=== PATIENT | female | born 1940 | race Caucasian/White ===

== ENCOUNTER 2016-06-20 22:04 | Inpatient (IN) ==
[2016-06-21] MEDS ORDERED: Ondansetron 4 MG/2 ML VIAL IVP ONE (01:20)
[2016-06-21] MEDS ORDERED: *HR* HYDROmorphone (PF) 1 MG/ML SYRINGE IVP ONE (01:20)
--- NOTE | 2016-06-21 03:02 | Internal Med History&Physical ---
Date of Encounter: 06/21/16 Time of Encounter: 03:00 Assessment and Plan (1) Closed left hip fracture Current visit: Yes Status: Acute Management as per orthopedic surgery. Pain control. DVT prophylaxis. Qualifiers: Encounter type: initial encounter Qualified Code(s): S72.002A - Fracture of unspecified part of neck of left femur, initial encounter for closed fracture (2) Coronary artery disease Current visit: Yes Status: Acute No chest pain, no EKG changes. Qualifiers: Coronary Disease-Associated Artery/Lesion type: bypass graft [place] vs. transplanted heart: [place] heart Associated angina: without angina Qualified Code(s): I25.810 - Atherosclerosis of coronary artery bypass graft(s) without angina pectoris (3) Hypertension Current visit: Yes Status: Acute Continue monitoring. Resume home medications. Qualifiers: Hypertension type: essential hypertension Qualified Code(s): I10 - Essential (primary) hypertension (4) Anxiety Current visit: Yes Status: Acute Internal Medicine - H&P: HPI Chief complaint: Fall Admitted From: Hospital to Hospital Transfer Plans for Post Hospital Care: Transfer Inp Rehab Fac History of present illness: Ms. Barahona is a 76 year old female with past medical history of hypertension, coronary artery disease status post CABG, osteoarthritis, former smoker, emphysema. The patient presented to [facility] status post mechanical fall at home, she denies loss of consciousness. Upon evaluation she was found to have a left hip fracture for which she was transferred to a [facility] for further management. Patient was accepted by Dr. Kelsey from orthopedic surgery. The patient denies fever, chills, chest pain, shortness of breath, wheezing, dysuria , diarrhea, skin rash. Past Med Surg Social Fam HX - Past Medical History Medical history: arthritis, coronary artery disease, hypertension Psychiatric history: anxiety - Past Surgical History Surgical History: angioplasty/stent, appendectomy, cataract, coronary bypass ( CABG), hysterectomy - Social History Smoking Status: Former smoker Smokeless Tobacco Status: No Alcohol use: none - Family History Father Living Status: Age at : 79 Cause of : Lung Cancer Hx Family Cancer: Yes (Lung Cancer) Mother Living Status: Age at : 79 Hx Family Neurologic Disorders: Yes (Dementia) Internal Medicine - H&P: Meds ClonazePAM [Klonopin] 0.5 mg PO BID 06/21/16 [History] Docusate [Colace] 100 mg PO BID 06/21/16 [History] Furosemide [Lasix] 20 mg PO BID 06/21/16 [History] Isosorbide DInitrate [Isordil] 10 mg PO BID PRN 06/21/16 [History] Lisinopril [Zestril] 20 mg PO DAILY 06/21/16 [History] Meloxicam [Mobic] 7.5 mg PO DAILY 06/21/16 [History] Omeprazole [PriLOSEC] 40 mg PO DAILY 06/21/16 [History] Oxycodone HCl/Acetaminophen [Percocet 5-325 mg Tablet] 5 - 325 mg PO Q4HR PRN [History] Promethazine [Phenergan] 12.5 mg PO Q6HR PRN 06/21/16 [History] Simvastatin [Zocor] 40 mg PO HS 06/21/16 [History] Temazepam [Restoril] 15 mg PO HS PRN 06/21/16 [History] Allergies Sulfa (Sulfonamide Antibiotics) Allergy (Verified 06/21/16 00:34) Hives CONTRAST DYE Allergy (Intermediate, Uncoded 06/21/16 00:48) Agitated and difficutly breathing All Systems PM: A 10-system review of systems was performed and is negative for pertinent findings except as documented above in the HPI. - Constitutional Constitutional: as per HPI, no chills, no fever(s), no night sweats - EENT Eyes: as per HPI, no change in vision, no discharge, no pain, no photophobia Ears: as per HPI, no ear discharge, no ear pain, no tinnitus Nose, mouth and throat: as per HPI, no dysphagia, no nasal discharge, no neck pain, no sore throat - Breasts Breasts: as per HPI - Cardiovascular Cardiovascular ROS IM: as per HPI, no chest pain, no diaphoresis, no dyspnea, no lightheadedness, no palpitations, no syncope - Respiratory Respiratory: as per HPI, no cough, no dyspnea, no wheezing, no excessive phlegm production - Gastrointestinal Gastrointestinal: as per HPI, no abdominal pain, no diarrhea, no hematemesis, no hematochezia, no melena, no nausea, no vomiting - Genitourinary Genitourinary: as per HPI, no change in urinary stream, no dysuria, no flank pain, no hematuria Menstruation: as per HPI - Musculoskeletal Musculoskeletal ROS IM: as per HPI, limited range of motion, no numbness, no tingling - Integumentary Integumentary IM: as per HPI, no rash, no unusual bruising - Neurological Neurological ROS: as per HPI, no confusion, no convulsions, no focal weakness, no numbness, no tingling, no tremor(s) - Psychiatric Psychiatric: as per HPI - Endocrine Endocrine IM: as per HPI - Hematologic/Lymphatic Hematologic/Lymphatic: as per HPI, no easy bruising - Allergic/Immunologic Allergic/Immunologic: as per HPI - Constitutional Vitals: Temp Pulse Resp BP Pulse Ox 98.8 F 86 18 159/79 97 06/21/16 00:00 06/21/16 00:00 06/21/16 00:00 06/21/16 00:00 06/21/16 00:00 General appearance: Present: A&O X 3, pleasant, no acute distress Exam: She is alert, awake, oriented, complaining of left hip pain. - Head Head exam: Present: atraumatic, normocephalic - Eye Eye exam: Present: PERRL, conjuntiva pink, sclera anicteric Pupils: Present: PERRL - Neck Neck exam general surgery: Present: supple, trachea midline. Absent: lymphadenopathy - Respiratory Respiratory exam: Present: CTAB. Absent: accessory muscle use, rales, rhonchi, wheezes - Cardiovascular Cardiovascular exam: Present: RRR, +S1, +S2. Absent: diastolic murmur, gallop, rubs, systolic murmur - GI/Abdominal GI/Abdominal exam: Present: normal bowel sounds, soft, no peritoneal signs. Absent: distended, tenderness - Extremities Exam Extremities exam: Present: warm, radial pulses palpable and symetrical. Absent : calf tenderness, cyanotic, pedal edema Additional comments: Left lower extremity externally rotated, shortening of left lower extremity - Neurological Exam Neurological exam: Present: CN II-XII intact, oriented X3, no focal deficits. Absent: pronater drift, facial droop, speech deficit - Skin Skin exam: Present: dry, intact Internal Med - H&P Results - Labs Labs: Hemoglobin 9.4, hematocrit 28.7, platelet count 158,000. INR 1.01.
[2016-06-21] MEDS ORDERED: Naloxone 0.4 MG/ML INJ IVP PRN ×3 (03:07→19:17)
[2016-06-21] MEDS ORDERED: *HR* OxyCODONE Immed Rel 5 MG TABLET PO PRN (03:07)
[2016-06-21] MEDS ORDERED: Ondansetron 4 MG/2 ML VIAL IVP PRN (03:07)
[2016-06-21] MEDS ORDERED: Acetaminophen 325 MG TABLET PO PRN ×2 (03:07→19:17)
[2016-06-21 04:32] LABS: Basophils % 0.2 %; Eosinophils % 0.7 %; Hematocrit 27.5 % (35.3-44.9); Hemoglobin 8.7 g/dL (11.5-15.4); Immature Granulocytes % 0.2 % (0-4); Lymphocytes # 0.5 K/mcL (0.6-4.6); Lymphocytes % 11.9 %; Mean Corpuscular HGB Conc 31.6 g/dL (31.6-35.5); Mean Corpuscular Hemoglobin 29.2 pg (28.0-33.3); Mean Corpuscular Volume 92.3 fL (83.0-100.0); Monocytes # 0.5 K/mcL (0.0-1.3); Monocytes % 11.4 %; Platelet Count 122 K/mcL (140-400); Red Blood Count 2.98 M/mcL (3.82-4.97); Segmented Neutrophils % 75.6 %
[2016-06-21 04:47] LABS: Alanine Aminotransferase 11 Units/L (0-55); Albumin 2.8 g/dL (3.5-5.0); Albumin/Globulin Ratio 0.9 (1.1-2.2); Alkaline Phosphatase 68 Units/L (38-126); Aspartate Amino Transferase 14 Units/L (5-34); BUN/Creatinine Ratio 22 (6-26); Bilirubin,Total 0.5 mg/dL (0.2-1.2); Blood Urea Nitrogen 20 mg/dL (7-20); Calcium 8.6 mg/dL (8.6-10.8); Carbon Dioxide 22 mEq/L (19-29); Chloride 107 mEq/L (98-109); Globulin 3.1 g/dL (2.4-3.5); Glucose 87 mg/dL (70-99); Osmolality,Calculated 286 (280-300); Potassium 4.7 mEq/L (3.5-4.5); Sodium 137 mEq/L (136-145); Total Protein 5.9 g/dL (6.0-8.3); eGFR For African Americans > 60 (> 60); eGFR For Non-African Americans > 60 (> 60)
[2016-06-21] MEDS ORDERED: Famotidine 20 MG/2 ML VIAL IVP SCH (06:00)
[2016-06-21] MEDS ORDERED: *HR* Heparin 5,000 UNIT/ML VIAL SQ SCH (06:00)
[2016-06-21] MEDS: *HR* Morphine 2 MG/ML SYRINGE IVP PRN ×4 (06:06→21:03)
--- NOTE | 2016-06-21 06:18 | Orthopedic Consult Note ---
Date of Encounter: 06/21/16 Time of Encounter: 06:16 History of Present Illness HPI: Ms. Barahona is a 76 year old female Status post post fall yesterday with injury to left hip.The patient denies any head trauma. Complains of inability to ambulate. Alert and oriented 3. Left lower extremity Neurovascularly intact Decreased range of motion secondary to pain X-rays left hip intertrochanteric hip fracture. Recommendation for left hip open reduction intramedullary nail fixation. Risks and benefits of surgery were discussed. Past Med Surg Social Fam HX - Past Medical History Medical history: arthritis, coronary artery disease, hypertension Psychiatric history: anxiety - Past Surgical History Surgical History: angioplasty/stent, appendectomy, cataract, coronary bypass ( CABG), hysterectomy - Social History Smoking Status: Former smoker Smokeless Tobacco Status: No Alcohol use: none - Family History Father Living Status: Age at : 79 Cause of : Lung Cancer Hx Family Cancer: Yes (Lung Cancer) Mother Living Status: Age at : 79 Hx Family Neurologic Disorders: Yes (Dementia) Medications and Allergies ClonazePAM [Klonopin] 0.5 mg PO BID 06/21/16 [History] Docusate [Colace] 100 mg PO BID 06/21/16 [History] Furosemide [Lasix] 20 mg PO BID 06/21/16 [History] Isosorbide DInitrate [Isordil] 10 mg PO BID PRN 06/21/16 [History] Lisinopril [Zestril] 20 mg PO DAILY 06/21/16 [History] Meloxicam [Mobic] 7.5 mg PO DAILY 06/21/16 [History] Omeprazole [PriLOSEC] 40 mg PO DAILY 06/21/16 [History] Oxycodone HCl/Acetaminophen [Percocet 5-325 mg Tablet] 5 - 325 mg PO Q4HR PRN [History] Promethazine [Phenergan] 12.5 mg PO Q6HR PRN 06/21/16 [History] Simvastatin [Zocor] 40 mg PO HS 06/21/16 [History] Temazepam [Restoril] 15 mg PO HS PRN 06/21/16 [History] Allergies Sulfa (Sulfonamide Antibiotics) Allergy (Verified 06/21/16 00:34) Hives CONTRAST DYE Allergy (Intermediate, Uncoded 06/21/16 00:48) Agitated and difficutly breathing All Systems Reviewed: A 10-system review of systems was performed and is negative for pertinent findings except as documented above in the HPI. Physical Exam - Constitutional Vitals: Temp Pulse Resp BP Pulse Ox 98.8 F 86 18 159/79 97 06/21/16 00:00 06/21/16 00:00 06/21/16 00:00 06/21/16 00:00 06/21/16 00:00 Results - Labs Result Diagrams: 06/21/16 03:39 06/21/16 03:39 Labs: Abnormal lab results WBC 4.0 K/mcL (4.3-11.1) L 06/21/16 03:39 RBC 2.98 M/mcL (3.82-4.97) L 06/21/16 03:39 Hgb 8.7 g/dL (11.5-15.4) L 06/21/16 03:39 Hct 27.5 % (35.3-44.9) L 06/21/16 03:39 Plt Count 122 K/mcL (140-400) L 06/21/16 03:39 Lymphocytes # 0.5 K/mcL (0.6-4.6) L 06/21/16 03:39 Potassium 4.7 mEq/L (3.5-4.5) H 06/21/16 03:39 Serum Total Protein 5.9 g/dL (6.0-8.3) L 06/21/16 03:39 Albumin 2.8 g/dL (3.5-5.0) L 06/21/16 03:39 Albumin/Globulin Ratio 0.9 (1.1-2.2) L 06/21/16 03:39 H & H 06/21/16 Range/Units 03:39 Hgb 8.7 L (11.5-15.4) g/dL Hct 27.5 L (35.3-44.9) % All other labs normal. Consult Discharge Plan - Plan Referrals: NO,PCP [Primary Care Provider] -
[2016-06-21] MEDS ORDERED: Lisinopril 20 MG TABLET PO SCH (09:00)
--- NOTE | 2016-06-21 12:00 | Event Note ---
Date of Encounter: 06/21/16 Time of Encounter: 11:58 Patient with history of CAD had a CABG in the past, hypertension, COPD, patient with admitted early this morning following a fall sustaining left hip fracture has been seen by orthopedics surgeon on plan for surgery this jonn and is medically stable no chest pain or sob stable for surgery this faternoon
[2016-06-21] MEDS ORDERED: D5% in 0.45% NACL 1,000 ML IVC SCH (14:15)
[2016-06-21] MEDS ORDERED: D5% in 0.45% NACL 1,000 ML IVC ONE (14:18)
--- NOTE | 2016-06-21 15:08 | Cardiology Consult Note ---
Date of Encounter: 06/21/16 Time of Encounter: 15:04 Assessment and Plan (1) Pre-operative cardiovascular examination Current Visit: Yes Status: Acute Mrs. Barahona currently has no acute cardiac complaints. History of CABG in 2012. No cardiac problems since that time. EKG shows no acute ST changes. Normal sinus rhythm, heart rate 84 bpm. No indication to delay surgery for further cardiac testing. Intermediate risk for intermediate risk surgery. Continue aspirin and statin perioperatively. Currently not on beta-robe. Consider starting after surgery. Call with questions. (2) Coronary artery disease Current Visit: Yes Status: Acute Continue aspirin, statin. Unsure why she is not on beta-robe. Can consider starting prior to discharge. Qualifiers: Coronary Disease-Associated Artery/Lesion type: bypass graft [place] vs. transplanted heart: [place] heart Associated angina: without angina Qualified Code(s): I25.810 - Atherosclerosis of coronary artery bypass graft(s) without angina pectoris Discussion w patient/family: The assessment and plan as outlined above was discussed with the patient and/or family members who expressed understanding and agreement. All questions were answered. Thank you for involving us in the care of your patient. Please call with any questions. History of Present Illness Consult date: 06/21/16 Requesting physician: Sophie Sullivan Consult reason: pre-operative cardiovascular clearance Chief complaint: Fall History of present illness: Ms. Barahona is a 76 year old female with a history of CABG in 2012 and hypertension. She presented after a mechanical fall at home fracturing her left hip. She denies dizziness or lightheadedness. She fell after turning to quickly with her walker. She denies any acute cardiac symptoms. She describes chronic symptoms including chest discomfort that occurs at night. She reports taking Imdur as needed for chest discomfort twice a week. Her discomfort has been ongoing for 2 years. She does have shortness of breath on climbing stairs or walking more than a city block. She reports this is chronic and unchanged over the past few years. She also has bilateral lower extremity edema that she reports is unchanged for several years. Her assistant in nursing is in [facility]. Past Med Surg Social Fam HX - Past Medical History Attestation: Yes The following information was validated with the patient. Medical history: arthritis, coronary artery disease, hypertension Psychiatric history: anxiety - Past Surgical History Surgical History: angioplasty/stent, appendectomy, cataract, coronary bypass ( CABG), hysterectomy - Social History Smoking Status: Former smoker Smokeless Tobacco Status: No Alcohol use: none - Family History Father Living Status: Age at : 79 Cause of : Lung Cancer Hx Family Cancer: Yes (Lung Cancer) Mother Living Status: Age at : 79 Hx Family Neurologic Disorders: Yes (Dementia) Medications and Allergies Calcium Carbonate/Vitamin D3 [Calcium 600 + Vit D Tablet] 1 tab PO DAILY [History] ClonazePAM [Klonopin] 0.5 mg PO BID 06/21/16 [History] Docusate [Colace] 100 mg PO BID 06/21/16 [History] Furosemide [Lasix] 20 mg PO BID 06/21/16 [History] Isosorbide DInitrate [Isordil] 10 - 20 mg PO TID PRN 06/21/16 [History] Lidocaine/Prilocaine CREAM [Emla] 1 appl TP PRN 06/21/16 [History] Lisinopril [Zestril] 20 mg PO DAILY 06/21/16 [History] Meloxicam [Mobic] 7.5 mg PO DAILY 06/21/16 [History] Multivitamin [One Daily Multivitamin] 1 tab PO DAILY 06/21/16 [History] [place]-3/Dha/Epa/Fish Oil [Fish Oil 1,000 mg Softgel] 1,000 mg PO DAILY 06/21/16 [History] Omeprazole [PriLOSEC] 40 mg PO DAILY 06/21/16 [History] Oxycodone HCl/Acetaminophen [Percocet 5-325 mg Tablet] 5 - 325 mg PO Q4HR PRN [History] Promethazine [Phenergan] 12.5 mg PO Q6HR PRN 06/21/16 [History] Simvastatin [Zocor] 40 mg PO HS 06/21/16 [History] Temazepam [Restoril] 15 mg PO HS PRN 06/21/16 [History] Allergies Sulfa (Sulfonamide Antibiotics) Allergy (Verified 06/21/16 00:34) Hives CONTRAST DYE Allergy (Intermediate, Uncoded 06/21/16 00:48) Agitated and difficutly breathing All Systems Review: A 10-system review of systems was performed and is negative for pertinent findings except as documented above in the HPI. Physical Examination General: Conversant, No Apparent Distress, Other (Frail elderly female) HEENT: Atraumatic, Normocephaly, Mucus Membranes Moist Neck: No JVD, Normal carotid pulses Cardiac: Reg Rate and Rhythm, Normal S1 and S2, No Murmur Lungs: Normal Breath Sounds, No Wheeze, Rales, Rhonchi Neuro: Alert and responsive, No focal deficits noted Abdomen: Soft, Non-Tender Skin: No rashes noted on visualized skin Musculoskeletal: No Chest Wall Tenderness Extremities: No Clubbing, No Cyanosis, Normal Pulses, Other (trace-1+edema BLE. ) Results 06/21/16 03:39 06/21/16 03:39 Lab Results 06/21/16 06/21/16 06/21/16 03:39 03:39 03:39 WBC 4.0 L Hgb 8.7 L Hct 27.5 L Plt Count 122 L Sodium 137 Potassium 4.7 H Chloride 107 Carbon Dioxide 22 BUN 20 Creatinine 0.89 Glucose 87 Calcium 8.6 Total Bilirubin 0.5 AST 14 ALT 11 Alkaline Phosphatase 68 Troponin I 0.02 - EKG Interpretation EKG results cardiology: personally reviewed (Sinus rhythm with no acute ST changes. Heart rate is 84 bpm.) Consult Discharge Plan - Plan Referrals: NO,PCP [Primary Care Provider] -
--- NOTE | 2016-06-21 16:33 | Anesthesia Evaluation PreOp ---
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) Other Medical History: Denies Any Significant HX, Other (Closed Left Hip Fx) Anesthesia History: No Prior Anesthetic Complications, Past Anesthesia (Appy, Cataract, CABG, YULIYA) : No Alcohol Use: none Drug use: none Medications and Allergies Calcium Carbonate/Vitamin D3 [Calcium 600 + Vit D Tablet] 1 tab PO DAILY [History] ClonazePAM [Klonopin] 0.5 mg PO BID 06/21/16 [History] Docusate [Colace] 100 mg PO BID 06/21/16 [History] Furosemide [Lasix] 20 mg PO BID 06/21/16 [History] Isosorbide DInitrate [Isordil] 10 - 20 mg PO TID PRN 06/21/16 [History] Lidocaine/Prilocaine CREAM [Emla] 1 appl TP PRN 06/21/16 [History] Lisinopril [Zestril] 20 mg PO DAILY 06/21/16 [History] Meloxicam [Mobic] 7.5 mg PO DAILY 06/21/16 [History] Multivitamin [One Daily Multivitamin] 1 tab PO DAILY 06/21/16 [History] [place]-3/Dha/Epa/Fish Oil [Fish Oil 1,000 mg Softgel] 1,000 mg PO DAILY 06/21/16 [History] Omeprazole [PriLOSEC] 40 mg PO DAILY 06/21/16 [History] Oxycodone HCl/Acetaminophen [Percocet 5-325 mg Tablet] 5 - 325 mg PO Q4HR PRN [History] Promethazine [Phenergan] 12.5 mg PO Q6HR PRN 06/21/16 [History] Simvastatin [Zocor] 40 mg PO HS 06/21/16 [History] Temazepam [Restoril] 15 mg PO HS PRN 06/21/16 [History] Allergies Sulfa (Sulfonamide Antibiotics) Allergy (Verified 06/21/16 00:34) Hives CONTRAST DYE Allergy (Intermediate, Uncoded 06/21/16 00:48) Agitated and difficutly breathing - Meds/Allergy Pre-op Review Medications Reviewed: Yes Allergies Reviewed: Yes Beta Blockers on Current Med List: No Anesthesia Results - Labs 06/21/16 03:39 06/21/16 03:39 - Imaging EKG: image reviewed (NSR) Anesthesia Exam O2 Sat Height 1.65 m Weight 60.016 kg O2 Sat by Pulse Oximetry 93 O2 Sat by Pulse Oximetry 97 O2 Sat by Pulse Oximetry 97 O2 Sat by Pulse Oximetry 97 O2 Sat by Pulse Oximetry 97 O2 Sat by Pulse Oximetry 97 Vital Signs Temp Pulse Resp BP Pulse Ox 98.8 F 86 18 159/79 97 06/21/16 00:00 06/21/16 00:00 06/21/16 00:00 06/21/16 00:00 06/21/16 00:00 Vital Signs/O2 Sat, Most Current Temp Pulse Resp BP Pulse Ox 98 F 83 18 134/72 93 L 06/21/16 15:39 06/21/16 15:39 06/21/16 15:39 06/21/16 15:39 06/21/16 15:39 Height: 5'5'' Weight: 132# NPO (# of Hours): > 8 hrs Pain Scale: 0 Pain Scale Used: Numeric (1 - 10) - HEENT Pupil (Motor): Pupils equal, EOMI Mallampati: II Teeth: Missing Denture Type: Upper: Complete, Lower: Partial Oral Opening: Greater than 3 - COMMERCIAL ENERGY RATER LOC: Oriented COMMERCIAL ENERGY RATER Motor: Normal RUE, Normal LUE, Normal RLE, Normal LLE, Normal Face COMMERCIAL ENERGY RATER Sensory: Normal: RUE, LUE, RLE, LLE, Face - Cardiac Rhythm: Regular Murmur: None JVD: No Carotid Bruit: No - Pulmonary Breath Sounds: bilateral Clear Respiratory Effort: Symmetrical Anesthesia Assess/Plan ASA Score: 3 Modified [place] Scale for Level of Consciousness: Cooperative, oriented, and tranquil Anesthetic Plan: General, Regional Monitoring Plan: Standard Monitors Recovery Plan: PACU
[2016-06-21] MEDS ORDERED: *HR* FentaNYL (PF) 100 MCG/2 ML VIAL ONE (16:54)
[2016-06-21] MEDS ORDERED: *HR* Propofol 200 MG/20 ML VIAL IVP ONE (16:54)
[2016-06-21] MEDS ORDERED: Lidocaine -MPF 2% 2 ML VIAL ONE (16:55)
[2016-06-21] MEDS ORDERED: Ondansetron 4 MG/2 ML VIAL ONE (17:59)
[2016-06-21] MEDS ORDERED: Dexamethasone 4 MG/ML VIAL ONE (17:59)
[2016-06-21] MEDS ORDERED: *HR* Morphine 2 MG/ML SYRINGE IVP PRN (18:21)
--- NOTE | 2016-06-21 18:27 | Orthopedic Operative Note ---
Date of procedure: 06/21/16 Pre-op diagnosis: Left intertrochanteric hip fracture Post-op diagnosis: same Procedure: Procedure: Left hip open reduction intramedullary nail fixation Estimated blood loss: 50 cc Hardware:Synthes 10 x 1 30 TFN, 95 helical blade, 36 distal locking bolt Operative procedure: The patient was brought to the operating room and placed on the operating room table. After general anesthesia was administered the well leg was place in the well leg honeycutt and the operative leg was placed in the fracture leg honeycutt. All pressure points were padded appropriately. The operative extremity was prepped and draped in the sterile surgical fashion patient received IV antibiotic prior to skin incision. A standard direct lateral approach was made over the entry point of the greater trochanter, the incision was made through the skin and subcutaneous tissue hemostasis was obtained with Bovie cautery. Using careful sharp dissection the fascia was identified and incised, flouroscopic assistance was used to identify the entry point. The guidepin was placed at the entry point using fluroscopic assistance, it was over reamed with the proximal reamer. The nail was placed through the entry hole, across the fracture site into the distal fragment. the position was confirmed with fluroscopy. A guide pin was placed through the proximal locking guide from the lateral femur through the nail across the fracture site into the femoral head, it was over reamed with the reamer. The helical blade was placed over the guide pin through the nail into the femoral head, locked in place with the proximal locking bolt. Distal locking bolt was placed through the distal locking guide. position of hardware and fracture reduction found to be acceptable with fluroscopic assistance. The wound was irrigated. Fascia was closed with a running #2 PDS suture. The deep tissue was irrigated and closed deep with #1 PDS suture superficially with 0 PDS suture and skin was closed wiskin fahad. The patient was placed in a sterile dressing The patient was extubated and transferred to the recovery room in stable condition. Anesthesia: GETA Surgeon: Efren Kelsey Condition: stable Disposition: PACU
--- NOTE | 2016-06-21 19:08 | Anesthesia Evaluation Post Op ---
Date of Encounter: 06/21/16 Time of Encounter: 19:07 - Vital Signs Vital Signs: Vital Signs/O2 Sat, Most Current Temp Pulse Resp BP Pulse Ox 99.3 F 92 16 165/87 98 06/21/16 19:05 06/21/16 19:05 06/21/16 19:05 06/21/16 19:05 06/21/16 19:05 - Lungs Lungs: Clear Ascult./Percussion - Airway Airway: Non-obstructed - Cardiovascular Regular Rate - Mental Status Mental Status: Asleep with brisk response to light stimulation - Pain Pain Scale: 0 Pain Scale used: Numeric (1 - 10) - Nausea Vomiting Nausea Vomiting: Not Present - Hydration Hydration: NPO, Pool catheter - Discharge PostOp Status: Transfer Patient to floor
[2016-06-21] MEDS: D5% in 0.45% NACL 1,000 ML IVC SCH (21:03)
[2016-06-21] MEDS ORDERED: *HR* Promethazine 25 MG/ML VIAL IVP PRN (22:02)
[2016-06-21] MEDS: *HR* OxyCODONE Immed Rel 5 MG TABLET PO PRN (22:11)
[2016-06-22] MEDS: ceFAZolin 2,000 MG in D5% in Water 100 ML IVPB SCH ×2 (00:18→09:22)
[2016-06-22] MEDS: *HR* Morphine 2 MG/ML SYRINGE IVP PRN ×2 (01:48→08:10)
--- NOTE | 2016-06-22 01:57 | Orthopedics Progress Note ---
Date of Encounter: 06/22/16 Time of Encounter: 01:56 Subjective Principal diagnosis: s/p left hip IM nail Interval history: The patient complains of left hip leg pain. Afebrile vital signs are stable. Incision is clean dry and intact. Neurovascularly intact with regard to bilateral lower extremities. Assessment :stable. Plan mobilize ,continue analgesics, discharge planning. Objective Vital signs: Vital Signs Temp Pulse Resp BP Pulse Ox 06/21/16 23:07 98.1 F 83 17 137/79 98 06/21/16 22:30 99.2 F 87 18 138/83 100 06/21/16 21:30 99.4 F 88 16 139/91 98 06/21/16 20:30 98.0 F 90 16 151/90 98 06/21/16 20:00 98.5 F 87 15 152/84 98 06/21/16 19:30 98.7 F 90 20 161/93 98 06/21/16 19:05 99.3 F 92 16 165/87 98 06/21/16 18:55 94 16 156/93 99 06/21/16 18:45 96 14 161/83 93 L 06/21/16 18:40 99 16 157/92 97 06/21/16 18:35 100.0 F H 89 16 143/70 100 06/21/16 15:39 98 F 83 18 134/72 93 L 06/21/16 11:03 98.2 F 87 16 126/70 97 06/21/16 09:55 97 06/21/16 06:40 98.4 F 84 14 132/71 97 Intake and Output 06/21/16 06/21/16 06/22/16 15:59 23:59 07:59 Intake Total 0 / 0 Output Total 1250 / 1250 Balance -1250 / -1250 Intake: Oral 0 / 0 Output: Urine 550 / 550 Estimated Blood Loss 50 / 50 Catheter 650 / 650 Other: Meal npo npo Percent of Meal Consumed 0% 0% Blood Glucose* 78 - Labs CBC & BMP: 06/21/16 03:39 06/21/16 03:39 Labs: Abnormal lab results WBC 4.0 K/mcL (4.3-11.1) L 06/21/16 03:39 RBC 2.98 M/mcL (3.82-4.97) L 06/21/16 03:39 Hgb 8.7 g/dL (11.5-15.4) L 06/21/16 03:39 Hct 27.5 % (35.3-44.9) L 06/21/16 03:39 Plt Count 122 K/mcL (140-400) L 06/21/16 03:39 Lymphocytes # 0.5 K/mcL (0.6-4.6) L 06/21/16 03:39 Potassium 4.7 mEq/L (3.5-4.5) H 06/21/16 03:39 Serum Total Protein 5.9 g/dL (6.0-8.3) L 06/21/16 03:39 Albumin 2.8 g/dL (3.5-5.0) L 06/21/16 03:39 Albumin/Globulin Ratio 0.9 (1.1-2.2) L 06/21/16 03:39 - VTE Documentation of Mechanical Device: Venous foot pump, device Consult Discharge Plan - Plan Referrals: NO,PCP [Primary Care Provider] -
[2016-06-22 05:14] LABS: Hematocrit 26.6 % (35.3-44.9); Hemoglobin 8.5 g/dL (11.5-15.4)
[2016-06-22] MEDS: *HR* Heparin 5,000 UNIT/ML VIAL SQ SCH ×2 (05:20→17:51)
[2016-06-22] MEDS: *HR* OxyCODONE Immed Rel 5 MG TABLET PO PRN ×3 (05:28→17:50)
[2016-06-22] MEDS: Famotidine 20 MG/2 ML VIAL IVP SCH (07:46)
[2016-06-22] MEDS: Lisinopril 20 MG TABLET PO SCH (07:55)
[2016-06-22] MEDS ORDERED: Famotidine 20 MG/2 ML VIAL IVP SCH (09:00)
--- NOTE | 2016-06-22 12:50 | Internal Med Progress Note ---
Date of Encounter: 06/22/16 Time of Encounter: 12:48 - Assessment and plan (1) Closed left hip fracture Current Visit: Yes Status: Acute Assessment and plan: ns/p suregry no complication having some pain will resume home percoct Qualifiers: Encounter type: initial encounter Qualified Code(s): S72.002A - Fracture of unspecified part of neck of left femur, initial encounter for closed fracture (2) Coronary artery disease Current Visit: Yes Status: Acute Assessment and plan: no chest pain seen by cardiology Qualifiers: Coronary Disease-Associated Artery/Lesion type: bypass graft [place] vs. transplanted heart: [place] heart Associated angina: without angina Qualified Code(s): I25.810 - Atherosclerosis of coronary artery bypass graft(s) without angina pectoris (3) Hypertension Current Visit: Yes Status: Acute Assessment and plan: well controlled Qualifiers: Hypertension type: essential hypertension Qualified Code(s): I10 - Essential (primary) hypertension - Subjective Interval history: patient underwent surgery says morphine is not helping wants her percocet awaiting rehab placement probably friday - Constitutional Vitals: Temp Pulse Resp BP Pulse Ox 98.0 F 118 18 122/69 95 06/22/16 11:24 06/22/16 11:24 06/22/16 11:24 06/22/16 11:24 06/22/16 11:24 General appearance: Present: A&O X 3, pleasant, no acute distress - Eye Eye exam: Present: PERRL, conjuntiva pink, sclera anicteric Pupils: Present: PERRL - Neck Neck exam general surgery: Present: supple, trachea midline. Absent: lymphadenopathy - Cardiovascular Cardiovascular exam: Present: RRR, +S1, +S2. Absent: diastolic murmur, gallop, rubs, systolic murmur - GI/Abdominal GI/Abdominal exam: Present: normal bowel sounds, soft, no peritoneal signs. Absent: distended, tenderness - Extremities Exam Extremities exam: Present: warm, radial pulses palpable and symetrical. Absent : calf tenderness, cyanotic, pedal edema Internal Medicine: Result - Labs CBC & Chem 7: 06/22/16 04:53 06/21/16 03:39 Labs: Short CBC 06/22/16 Range/Units 04:53 Hgb 8.5 L (11.5-15.4) g/dL Hct 26.6 L (35.3-44.9) % - Impressions Impressions Fluoroscopy 06/21/16 18:00 IMPRESSION: Intraprocedural fluoroscopic spot images as above. See separate procedure report for more information. D/ / Brayan Jacobson MD / Brayan Jaocbson MD Interpreting Provider: Brayan Jacobson MD - VTE Documentation of Mechanical Device: Venous foot pump, device Consult Discharge Plan - Plan Referrals: NO,PCP [Primary Care Provider] -
[2016-06-22] MEDS: D5% in 0.45% NACL 1,000 ML IVC SCH (13:31)
[2016-06-22] MEDS: clonazePAM 0.5 MG TABLET PO SCH (20:06)
[2016-06-23] MEDS: *HR* OxyCODONE Immed Rel 5 MG TABLET PO PRN ×2 (00:37→18:06)
[2016-06-23] MEDS: D5% in 0.45% NACL 1,000 ML IVC SCH ×2 (00:55→13:39)
[2016-06-23] MEDS: *HR* OxyCODONE/APAP 10/325 TABLET PO PRN ×3 (04:30→13:39)
[2016-06-23 06:06] LABS: Hematocrit 24.5 % (35.3-44.9); Hemoglobin 7.6 g/dL (11.5-15.4); Mean Corpuscular Hemoglobin 28.8 pg (28.0-33.3); Mean Corpuscular Volume 92.8 fL (83.0-100.0); Mean Platelet Volume 11.2 fL (9.4-12.4); Platelet Count 121 K/mcL (140-400); Red Blood Count 2.64 M/mcL (3.82-4.97); Red Cell Distribution Width 14.1 % (11.5-14.5)
[2016-06-23] MEDS: *HR* Heparin 5,000 UNIT/ML VIAL SQ SCH ×2 (06:06→17:56)
[2016-06-23 06:17] LABS: BUN/Creatinine Ratio 16 (6-26); Blood Urea Nitrogen 13 mg/dL (7-20); Calcium 8.1 mg/dL (8.6-10.8); Carbon Dioxide 25 mEq/L (19-29); Chloride 105 mEq/L (98-109); Glucose 116 mg/dL (70-99); Osmolality,Calculated 283 (280-300); Potassium 4.1 mEq/L (3.5-4.5); Sodium 136 mEq/L (136-145); eGFR For African Americans > 60 (> 60); eGFR For Non-African Americans > 60 (> 60)
[2016-06-23] MEDS: clonazePAM 0.5 MG TABLET PO SCH ×2 (07:51→21:17)
[2016-06-23] MEDS: Cholecalciferol (D-3) 1,000 UNIT TABLET PO SCH (07:51)
[2016-06-23] MEDS: Lisinopril 20 MG TABLET PO SCH (07:51)
[2016-06-23] MEDS: Famotidine 20 MG/2 ML VIAL IVP SCH (07:51)
[2016-06-23] MEDS: Ondansetron 4 MG/2 ML VIAL IVP PRN (15:04)
[2016-06-23] MEDS ORDERED: Furosemide 20 MG/2 ML VIAL IVP ONE (15:32)
--- NOTE | 2016-06-23 15:37 | Internal Med Progress Note ---
Date of Encounter: 06/23/16 Time of Encounter: 15:35 - Assessment and plan (1) Closed left hip fracture Current Visit: Yes Status: Acute Assessment and plan: s/p surgery no complication Qualifiers: Encounter type: initial encounter Qualified Code(s): S72.002A - Fracture of unspecified part of neck of left femur, initial encounter for closed fracture (2) Coronary artery disease Current Visit: Yes Status: Acute Assessment and plan: no chest pain Qualifiers: Coronary Disease-Associated Artery/Lesion type: bypass graft [place] vs. transplanted heart: [place] heart Associated angina: without angina Qualified Code(s): I25.810 - Atherosclerosis of coronary artery bypass graft(s) without angina pectoris (3) Hypertension Current Visit: Yes Status: Acute Assessment and plan: Bp low at present Qualifiers: Hypertension type: essential hypertension Qualified Code(s): I10 - Essential (primary) hypertension (4) Anemia Current Visit: Yes Status: Acute Assessment and plan: likely dilution and surgical blood loss will guaic kentrell and transfuse if no problem proceed with discharge to rehab tomorrow Qualifiers: Anemia type: unspecified type Qualified Code(s): D64.9 - Anemia, unspecified - Subjective Interval history: patient underwent surgery says morphine is not helping wants her percocet awaiting rehab placement probably friday today feels well no complain hgb sown to 7.6 no bowel movement yet discussed with nurse to check guiac stool and give 2 units oh blood - Constitutional Vitals: Temp Pulse Resp BP Pulse Ox 98.0 F 72 18 97/59 92 L 06/23/16 15:25 06/23/16 15:25 06/23/16 15:25 06/23/16 15:25 06/23/16 15:25 General appearance: Present: A&O X 3, pleasant, no acute distress - Eye Eye exam: Present: PERRL, conjuntiva pink, sclera anicteric Pupils: Present: PERRL - Neck Neck exam general surgery: Present: supple, trachea midline. Absent: lymphadenopathy - Respiratory Respiratory exam: Present: CTAB. Absent: accessory muscle use, rales, rhonchi, wheezes - Cardiovascular Cardiovascular exam: Present: RRR, +S1, +S2. Absent: diastolic murmur, gallop, rubs, systolic murmur - GI/Abdominal GI/Abdominal exam: Present: normal bowel sounds, soft, no peritoneal signs. Absent: distended, tenderness - Extremities Exam Extremities exam: Present: warm, radial pulses palpable and symetrical. Absent : calf tenderness, cyanotic, pedal edema Internal Medicine: Result - Labs CBC & Chem 7: 06/23/16 05:12 06/23/16 05:12 Labs: Short CBC 06/23/16 Range/Units 05:12 WBC 4.0 L (4.3-11.1) K/mcL Hgb 7.6 L (11.5-15.4) g/dL Hct 24.5 L (35.3-44.9) % Plt Count 121 L (140-400) K/mcL BMP 06/23/16 05:12 Sodium 136 Potassium 4.1 Chloride 105 Carbon Dioxide 25 BUN 13 Creatinine 0.81 Glucose 116 H Calcium 8.1 L - VTE Documentation of Mechanical Device: Venous foot pump, device Consult Discharge Plan - Plan Referrals: NO,PCP [Primary Care Provider] -
[2016-06-23] MEDS ORDERED: 0.9 % Sodium Chloride 500 ML ONE (18:22)
[2016-06-24] MEDS ORDERED: 0.9 % Sodium Chloride 250 ML ONE (00:05)
[2016-06-24] MEDS: *HR* OxyCODONE/APAP 10/325 TABLET PO PRN ×4 (00:34→18:03)
[2016-06-24] MEDS: *HR* Heparin 5,000 UNIT/ML VIAL SQ SCH ×2 (06:57→18:03)
[2016-06-24] MEDS: Cholecalciferol (D-3) 1,000 UNIT TABLET PO SCH (07:52)
[2016-06-24] MEDS: clonazePAM 0.5 MG TABLET PO SCH ×2 (07:52→21:14)
[2016-06-24] MEDS: Lisinopril 20 MG TABLET PO SCH (07:52)
[2016-06-24] MEDS: Famotidine 20 MG/2 ML VIAL IVP SCH (07:53)
--- NOTE | 2016-06-24 08:06 | Orthopedics Progress Note ---
Date of Encounter: 06/24/16 Time of Encounter: 08:06 - Assessment and Plan (1) Closed left hip fracture Current Visit: Yes Status: Acute POD#3 - Left Hip IM nailing She received 2 units yesterday for H/H 7.6 and 24. Awaiting labs for today. IV access has been difficult. She has a hematoma to Left antecubital space. Patient can progress to PWB as tolerated. Following hip precautions. Dressing can be left intact until f/up at [facility]. APpts to be faxed to the unit. f/up 2 weeks. Qualifiers: Encounter type: initial encounter Qualified Code(s): S72.002A - Fracture of unspecified part of neck of left femur, initial encounter for closed fracture (2) Coronary artery disease Current Visit: Yes Status: Acute Qualifiers: Coronary Disease-Associated Artery/Lesion type: bypass graft [place] vs. transplanted heart: [place] heart Associated angina: without angina Qualified Code(s): I25.810 - Atherosclerosis of coronary artery bypass graft(s) without angina pectoris (3) Hypertension Current Visit: Yes Status: Acute Qualifiers: Hypertension type: essential hypertension Qualified Code(s): I10 - Essential (primary) hypertension (4) Anxiety Current Visit: Yes Status: Acute (5) Anemia Current Visit: Yes Status: Acute Qualifiers: Anemia type: unspecified type Qualified Code(s): D64.9 - Anemia, unspecified Subjective Principal diagnosis: s/p left hip IM nail Interval history: POD#3 - Left Him IM nailings 06/21/16 with Patient is A&O x 3, sitting up in chair. She is complaining of pain to her left leg; denies N/T and calf pain. Afebrile, vitals are stable. H/H 7.6 and 24 from yesterday - received two units. Awaiting new labs today. Hematoma to left antecubital space. LLE: Minimal swelling, no erythema. Dressing c/d/i. No calf tenderness. NV intact distally. Patient has been NWB up to this point in her rehabiliatation. Awaiting ECF placement closer to [place], as that is where her family is from. Objective Vital signs: Vital Signs Temp Pulse Resp BP Pulse Ox 06/24/16 06:41 97.9 F 73 16 127/72 95 06/24/16 00:48 97.9 F 69 16 106/59 06/24/16 00:41 98.0 F 72 16 117/67 92 L 06/24/16 00:22 98.1 F 78 12 113/54 96 06/23/16 18:52 98.1 F 78 12 113/54 96 06/23/16 18:30 97.8 F 82 16 131/69 93 L 06/23/16 17:54 82 94/58 06/23/16 15:25 98.0 F 72 18 97/59 92 L 06/23/16 13:36 97.6 F 76 16 104/53 96 06/23/16 11:46 98.0 F 77 18 99/64 97 Intake and Output 06/23/16 06/24/16 06/24/16 23:59 07:59 15:59 Intake Total 300 / 300 550 / 550 Output Total 550 / 550 400 / 400 Balance -250 / -250 150 / 150 Intake: Oral 250 / 250 Blood Product 300 / 300 300 / 300 Rbcs Leuko Poor As-1 300 / 300 Unit [id number] Rbcs Leuko Poor As-1 300 / 300 Unit [id number] Output: Urine 550 / 550 400 / 400 Other: # Voids 1 1 Incision: clean and dry - Labs CBC & BMP: 06/23/16 05:12 06/23/16 05:12 Labs: Abnormal lab results WBC 4.0 K/mcL (4.3-11.1) L 06/23/16 05:12 RBC 2.64 M/mcL (3.82-4.97) L 06/23/16 05:12 Hgb 7.6 g/dL (11.5-15.4) L 06/23/16 05:12 Hct 24.5 % (35.3-44.9) L 06/23/16 05:12 MCHC 31.0 g/dL (31.6-35.5) L 06/23/16 05:12 Plt Count 121 K/mcL (140-400) L 06/23/16 05:12 Lymphocytes # 0.5 K/mcL (0.6-4.6) L 06/21/16 03:39 Glucose 116 mg/dL (70-99) H 06/23/16 05:12 Calcium 8.1 mg/dL (8.6-10.8) L 06/23/16 05:12 Serum Total Protein 5.9 g/dL (6.0-8.3) L 06/21/16 03:39 Albumin 2.8 g/dL (3.5-5.0) L 06/21/16 03:39 Albumin/Globulin Ratio 0.9 (1.1-2.2) L 06/21/16 03:39 - VTE Documentation of Mechanical Device: Venous foot pump, device Consult Discharge Plan - Plan Referrals: NO,PCP [Primary Care Provider] -
[2016-06-24 09:13] LABS: Hematocrit 33.4 % (35.3-44.9)
[2016-06-24 09:14] LABS: Hemoglobin 10.7 g/dL (11.5-15.4)
[2016-06-24] MEDS ORDERED: Bisacodyl 10 MG RECTAL SUPPOSITORY RC ONE (10:05)
--- NOTE | 2016-06-24 10:17 | Internal Med Progress Note ---
Date of Encounter: 06/24/16 Time of Encounter: 10:15 - Assessment and plan (1) Closed left hip fracture Current Visit: Yes Status: Acute Assessment and plan: s/p surgery no complication Qualifiers: Encounter type: initial encounter Qualified Code(s): S72.002A - Fracture of unspecified part of neck of left femur, initial encounter for closed fracture (2) Coronary artery disease Current Visit: Yes Status: Acute Assessment and plan: no chest pain Qualifiers: Coronary Disease-Associated Artery/Lesion type: bypass graft [place] vs. transplanted heart: [place] heart Associated angina: without angina Qualified Code(s): I25.810 - Atherosclerosis of coronary artery bypass graft(s) without angina pectoris (3) Hypertension Current Visit: Yes Status: Chronic Assessment and plan: well controlled Qualifiers: Hypertension type: essential hypertension Qualified Code(s): I10 - Essential (primary) hypertension (4) Anemia Current Visit: Yes Status: Acute Assessment and plan: chronic tranfused and hemoglobin appropriate no evidence of GI bleed Qualifiers: Anemia type: unspecified type Qualified Code(s): D64.9 - Anemia, unspecified (5) Constipation Current Visit: Yes Status: Acute Assessment and plan: contibution of pain med discussed with nurse to give different laxative until obtain result Qualifiers: Constipation type: unspecified constipation type Qualified Code(s): K59.00 - Constipation, unspecified - Subjective Interval history: patient underwent surgery says morphine is not helping wants her percocet awaiting rehab placement probably friday today feels well no complain hgb sown to 7.6 no bowel movement yet discussed with nurse to check today had multiple complains right arm iv infiltration pain not moving bowel yet with some epigastric pain received blood transfusion yesterday no bowel movement yet to check hem ocult awaiting approval for rehab transfer - Constitutional Vitals: Temp Pulse Resp BP Pulse Ox 98.3 F 75 17 137/76 95 06/24/16 07:30 06/24/16 07:30 06/24/16 07:30 06/24/16 07:30 06/24/16 07:30 General appearance: Present: A&O X 3, pleasant, no acute distress - Head Head exam: Present: atraumatic, normocephalic - Eye Eye exam: Present: PERRL, conjuntiva pink, sclera anicteric Pupils: Present: PERRL - Neck Neck exam general surgery: Present: supple, trachea midline. Absent: lymphadenopathy - Respiratory Respiratory exam: Present: CTAB. Absent: accessory muscle use, rales, rhonchi, wheezes - Cardiovascular Cardiovascular exam: Present: RRR, +S1, +S2. Absent: diastolic murmur, gallop, rubs, systolic murmur - GI/Abdominal GI/Abdominal exam: Present: normal bowel sounds, soft, no peritoneal signs. Absent: distended, tenderness - Expanded Upper Extremities Exam Forearm wrist exam: Present: ecchymosis Internal Medicine: Result - Labs CBC & Chem 7: 06/24/16 09:03 06/23/16 05:12 Labs: Short CBC 06/24/16 Range/Units 09:03 Hgb 10.7 L D (11.5-15.4) g/dL Hct 33.4 L (35.3-44.9) % - VTE Documentation of Mechanical Device: Venous foot pump, device Consult Discharge Plan - Plan Referrals: NO,PCP [Primary Care Provider] -
[2016-06-24] MEDS: *HR* HYDROmorphone (PF) 1 MG/ML SYRINGE IVP PRN ×2 (10:43→21:13)
[2016-06-24] MEDS: *HR* OxyCODONE Immed Rel 5 MG TABLET PO PRN (14:29)
[2016-06-25] MEDS: *HR* OxyCODONE/APAP 10/325 TABLET PO PRN ×4 (01:43→15:56)
[2016-06-25] MEDS: *HR* Heparin 5,000 UNIT/ML VIAL SQ SCH ×2 (06:03→19:07)
[2016-06-25 06:35] LABS: Hematocrit 30.7 % (35.3-44.9); Hemoglobin 9.9 g/dL (11.5-15.4); Mean Corpuscular HGB Conc 32.2 g/dL (31.6-35.5); Mean Corpuscular Hemoglobin 29.2 pg (28.0-33.3); Mean Corpuscular Volume 90.6 fL (83.0-100.0); Mean Platelet Volume 11.1 fL (9.4-12.4); Platelet Count 142 K/mcL (140-400); Red Blood Count 3.39 M/mcL (3.82-4.97); Red Cell Distribution Width 14.6 % (11.5-14.5)
[2016-06-25 06:56] LABS: BUN/Creatinine Ratio 16 (6-26); Blood Urea Nitrogen 12 mg/dL (7-20); Calcium 8.6 mg/dL (8.6-10.8); Carbon Dioxide 26 mEq/L (19-29); Chloride 105 mEq/L (98-109); Glucose 93 mg/dL (70-99); Magnesium 1.4 mg/dL (1.6-2.6); Osmolality,Calculated 283 (280-300); Potassium 4.6 mEq/L (3.5-4.5); Sodium 137 mEq/L (136-145); eGFR For African Americans > 60 (> 60); eGFR For Non-African Americans > 60 (> 60)
[2016-06-25] MEDS: Cholecalciferol (D-3) 1,000 UNIT TABLET PO SCH (08:34)
[2016-06-25] MEDS: clonazePAM 0.5 MG TABLET PO SCH ×2 (08:34→20:54)
[2016-06-25] MEDS: Lisinopril 20 MG TABLET PO SCH (08:34)
[2016-06-25] MEDS: Famotidine 20 MG/2 ML VIAL IVP SCH (08:34)
--- NOTE | 2016-06-25 10:52 | Discharge Summary ---
<Dangelo Sahu - Last Filed: 06/25/16 10:46> Date of Encounter: 06/25/16 Time of Encounter: 10:46 - Discharge Diagnosis (1) Closed left hip fracture Priority: Primary Status: Acute Qualifiers: Encounter type: initial encounter Qualified Code(s): S72.002A - Fracture of unspecified part of neck of left femur, initial encounter for closed fracture (2) Coronary artery disease Priority: Primary Status: Acute Qualifiers: Coronary Disease-Associated Artery/Lesion type: bypass graft [place] vs. transplanted heart: [place] heart Associated angina: without angina Qualified Code(s): I25.810 - Atherosclerosis of coronary artery bypass graft(s) without angina pectoris (3) Hypertension Priority: Primary Status: Chronic Qualifiers: Hypertension type: essential hypertension Qualified Code(s): I10 - Essential (primary) hypertension (4) Anxiety Priority: Primary Status: Acute (5) Anemia Priority: Primary Status: Acute Qualifiers: Anemia type: unspecified type Qualified Code(s): D64.9 - Anemia, unspecified (6) Constipation Priority: Primary Status: Acute Qualifiers: Constipation type: unspecified constipation type Qualified Code(s): K59.00 - Constipation, unspecified - Discharge Medications Prescriptions: Oxycodone HCl/Acetaminophen [Percocet 5-325 mg Tablet] 5 - 325 mg PO Q4HR PRN # 25 tablet PRN Reason: Pain Enoxaparin [Lovenox] 30 mg SQ DAILY #14 syr Home Medications: Calcium Carbonate/Vitamin D3 [Calcium 600 + Vit D Tablet] 1 tab PO DAILY [History] ClonazePAM [Klonopin] 0.5 mg PO BID 06/21/16 [History] Docusate [Colace] 100 mg PO BID 06/21/16 [History] Furosemide [Lasix] 20 mg PO BID 06/21/16 [History] Isosorbide DInitrate [Isordil] 10 - 20 mg PO TID PRN 06/21/16 [History] Lidocaine/Prilocaine CREAM [Emla] 1 appl TP PRN 06/21/16 [History] Lisinopril [Zestril] 20 mg PO DAILY 06/21/16 [History] Meloxicam [Mobic] 7.5 mg PO DAILY 06/21/16 [History] Multivitamin [One Daily Multivitamin] 1 tab PO DAILY 06/21/16 [History] Groom-3/Dha/Epa/Fish Oil [Fish Oil 1,000 mg Softgel] 1,000 mg PO DAILY 06/21/16 [History] Omeprazole [PriLOSEC] 40 mg PO DAILY 06/21/16 [History] Promethazine [Phenergan] 12.5 mg PO Q6HR PRN 06/21/16 [History] Simvastatin [Zocor] 40 mg PO HS 06/21/16 [History] Temazepam [Restoril] 15 mg PO HS PRN 06/21/16 [History] Enoxaparin [Lovenox] 30 mg SQ DAILY #14 syr 06/25/16 [Rx] Oxycodone HCl/Acetaminophen [Percocet 5-325 mg Tablet] 5 - 325 mg PO Q4HR PRN # 25 tablet 06/25/16 [Rx] Allergies/Adverse Reactions: Allergies Sulfa (Sulfonamide Antibiotics) Allergy (Verified 06/21/16 00:34) Hives CONTRAST DYE Allergy (Intermediate, Uncoded 06/21/16 00:48) Agitated and difficutly breathing Date of admission: 06/21/16 04:27 Primary care physician: PCP NO Consults: 06/21/16 13:26 Consult to Cardiology [CONS] Routine Comment: Consulting Provider: Iglesia Vasquez Reason for Consult: medical clearance for surgery Call Completed: Yes 06/21/16 19:17 Consult to Occupational Therapy [CONS] Routine Comment: Evaluate, develop and implement POC Consult to Orthopedic Navigator [CONS] [CONS] Routine Consult to Physical Therapy [CONS] Routine Comment: Nonweightbearing left lower extremity RT Post Op Consult [CONS] Routine Discharging clinician: Dangelo Sahu Anticipated date of discharge: 06/25/16 - Patient Status Disposition: Transfer SNF Condition: Good Functional capacity at discharge: uses cane/walker Overall status at discharge: patient is progressing back to baseline - Discharge Instructions Follow Up With: NO,PCP [Primary Care Provider] - Additional Instructions: Follow-up with primary care physician in the next 3-5 days. Take medications as prescribed. Partake in physical therapy and occupational therapy. - Diet and Activity Activity: as per physical therapy Diet: low fat, low cholesterol, low salt diet Interval History: Ms. Barahona is a 76 year old female with past medical history of hypertension, coronary artery disease status post CABG, osteoarthritis, former smoker, emphysema. The patient presented to [facility] status post mechanical fall at home, and subsequently transferred to [facility] for further intervention. The patient was found to have a left hip fracture and was accepted for transfer and seen by Dr. Saleh from orthopedic surgery upon arrival. Cardiology was consult for preoperative cardiovascular examination and she was deemed intermediate risk for an intermediate risk procedure. The evening of 06/21/2016 she underwent Left hip open reduction intramedullary nail fixation successfully. Postoperatively she was transferred to the general medical floor for continued care. Of note she was admitted with hemoglobin of 8.7 which slowly trended down to 7.6 on 06/23/2016. Blood loss likely secondary to traumatic left hip fracture and surgical intervention. Patient received 2 units PRBCs between 06/23/2016 and 06/24/2016. Stool occult was negative for blood. Of note the patient's vitals remained stable throughout her inpatient stay. Postoperative the patient was seen and started physical therapy and occupational therapy on 06/22/2016 which continued daily until the date of discharge. Physical therapy recommendations are as an SNF/ECF. On the day of discharge the patient was seen and evaluated patient bedside and deemed stable for discharge or continued outpatient therapy. Hospital course: Ms. Barahona is a 76 year old female - Time Spent with Patient Total time spent providing and/or coordinating discharge services: - Constitutional Vitals: Temp Pulse Resp BP Pulse Ox 97.8 F 70 18 118/68 92 L 06/25/16 06:51 06/25/16 06:51 06/25/16 06:51 06/25/16 06:51 06/25/16 06:51 General appearance: Present: A&O X 3, pleasant, no acute distress - Head Head exam: Present: atraumatic, normocephalic - Eye Eye exam: Present: PERRL, conjuntiva pink, sclera anicteric Pupils: Present: PERRL - ENT ENT exam: Present: mucous membranes moist - Neck Neck exam general surgery: Present: supple, trachea midline. Absent: lymphadenopathy - Respiratory Respiratory exam: Present: CTAB. Absent: accessory muscle use, rales, rhonchi, wheezes - Cardiovascular Cardiovascular exam: Present: RRR, +S1, +S2. Absent: diastolic murmur, gallop, rubs, systolic murmur - GI/Abdominal GI/Abdominal exam: Present: normal bowel sounds, soft, no peritoneal signs. Absent: distended, tenderness - Extremities Exam Extremities exam: Present: warm, radial pulses palpable and symetrical. Absent : calf tenderness, cyanotic, pedal edema Additional comments: Left hip incision is covered and dressed appropriately without any drainage, surrounding tissue is soft without any signs of swelling, erythema. - Neurological Exam Neurological exam: Present: alert, CN II-XII intact, oriented X3, no focal deficits. Absent: pronater drift, facial droop, speech deficit - Psychiatric Psychiatric exam: Present: normal affect, normal mood - Skin Skin exam: Present: warm - VTE Documentation of Mechanical Device: Intermittent pneumatic compression device <Rafael Ramirez - Last Filed: 06/25/16 11:21> Date of admission: 06/21/16 04:27 Primary care physician: PCP NO Consults: 06/21/16 13:26 Consult to Cardiology [CONS] Routine Comment: Consulting Provider: Cardiology Christina Reason for Consult: medical clearance for surgery Call Completed: Yes 06/21/16 19:17 Consult to Occupational Therapy [CONS] Routine Comment: Evaluate, develop and implement POC Consult to Orthopedic Navigator [CONS] [CONS] Routine Consult to Physical Therapy [CONS] Routine Comment: Nonweightbearing left lower extremity RT Post Op Consult [CONS] Routine Hospital course: Ms. Barahona is a 76 year old female - Time Spent with Patient Total time spent providing and/or coordinating discharge services: - Constitutional Vitals: Temp Pulse Resp BP Pulse Ox 97.8 F 70 18 118/68 92 L 06/25/16 06:51 06/25/16 06:51 06/25/16 06:51 06/25/16 06:51 06/25/16 06:51 - Attending Attestation Acute blood loss anemia likely related to surgical procedure. No GI bleed ( hemocult negative) Time spent on this discharge 40 min . I examined this patient and my medical decision-making was reviewed with the [employer]/PA/Advanced Practice Nurse/Resident Physician. I agree with the documented findings, disposition and treatment plan as described except to the extent set forth below.
--- NOTE | 2016-06-25 11:21 | Physician Discharge Referral ---
<Dangelo Sahu - Last Filed: 06/25/16 11:19> [facility] Referral Info Transfer To: ECF Provider in Charge after Transfer: PCP Institutional Level of Care: Skilled - Diagnosis (1) Closed left hip fracture Priority: Primary Status: Acute (2) Coronary artery disease Status: Acute (3) Hypertension Priority: Secondary Status: Chronic (4) Anxiety Status: Acute (5) Anemia Status: Acute (6) Constipation Status: Acute - Transfer Medications Prescriptions: Oxycodone HCl/Acetaminophen [Percocet 5-325 mg Tablet] 5 - 325 mg PO Q4HR PRN # 25 tablet PRN Reason: Pain Enoxaparin [Lovenox] 30 mg SQ DAILY #14 syr Home Medications: Calcium Carbonate/Vitamin D3 [Calcium 600 + Vit D Tablet] 1 tab PO DAILY [History] ClonazePAM [Klonopin] 0.5 mg PO BID 06/21/16 [History] Docusate [Colace] 100 mg PO BID 06/21/16 [History] Furosemide [Lasix] 20 mg PO BID 06/21/16 [History] Isosorbide DInitrate [Isordil] 10 - 20 mg PO TID PRN 06/21/16 [History] Lidocaine/Prilocaine CREAM [Emla] 1 appl TP PRN 06/21/16 [History] Lisinopril [Zestril] 20 mg PO DAILY 06/21/16 [History] Meloxicam [Mobic] 7.5 mg PO DAILY 06/21/16 [History] Multivitamin [One Daily Multivitamin] 1 tab PO DAILY 06/21/16 [History] [place]-3/Dha/Epa/Fish Oil [Fish Oil 1,000 mg Softgel] 1,000 mg PO DAILY 06/21/16 [History] Omeprazole [PriLOSEC] 40 mg PO DAILY 06/21/16 [History] Promethazine [Phenergan] 12.5 mg PO Q6HR PRN 06/21/16 [History] Simvastatin [Zocor] 40 mg PO HS 06/21/16 [History] Temazepam [Restoril] 15 mg PO HS PRN 06/21/16 [History] Enoxaparin [Lovenox] 30 mg SQ DAILY #14 syr 06/25/16 [Rx] Oxycodone HCl/Acetaminophen [Percocet 5-325 mg Tablet] 5 - 325 mg PO Q4HR PRN # 25 tablet 06/25/16 [Rx] Allergies/Adverse Reactions: Allergies Sulfa (Sulfonamide Antibiotics) Allergy (Verified 06/21/16 00:34) Hives CONTRAST DYE Allergy (Intermediate, Uncoded 06/21/16 00:48) Agitated and difficutly breathing - Respiratory Orders Smoking Cessation: Smoking cessation has been advised. For more information, call the [employer] Quit Line at 1-165-ZAKL-NOW. - Ancillary Orders May use pressure relief devices daily prn, May consult with Dentist, Outplacement Consultant, Chuck Tender PRN - Advance Directives Living Will: No Power of Temperature Inspector: No Code Status: Full Code - Mobility Orders Ambulate - Rehabiliation Orders Rehab Potential: Good Rehab Orders: ROM Exercises, Evaluation for Physical Therapy, Evaluation for Occupational Therapy - Treatments Skin tear care topically daily PRN per policy, Fleet enema rectally every other day PRN cleansing purposes - Diet Orders No Added Salt (INGRID) CERTIFICATION: I certify that the transfer of the above named patient to an Extended Care Facility is necessary for the continuing treatment of the diagnosis listed. The above information is true and accurate reflection of patient's current condition. Confidential - Redisclosure prohibited without a patient's written consent. <Rafael Ramirez - Last Filed: 06/25/16 11:22> - Respiratory Orders Smoking Cessation: Smoking cessation has been advised. For more information, call the [employer] Quit Line at 1-350-YKNZ-NOW. CERTIFICATION: I certify that the transfer of the above named patient to an Extended Care Facility is necessary for the continuing treatment of the diagnosis listed. The above information is true and accurate reflection of patient's current condition. Confidential - Redisclosure prohibited without a patient's written consent. I examined this patient and my medical decision-making was reviewed with the [facility]CR[employer] BALER/PA/Advanced Practice Nurse/Resident Physician. I agree with the documented findings, disposition and treatment plan as described except to the extent set forth below.
[2016-06-25] MEDS: *HR* OxyCODONE Immed Rel 5 MG TABLET PO PRN (20:56)
[2016-06-26] MEDS: *HR* OxyCODONE/APAP 10/325 TABLET PO PRN ×5 (01:56→22:12)
[2016-06-26] MEDS: *HR* Heparin 5,000 UNIT/ML VIAL SQ SCH ×2 (05:19→17:24)
[2016-06-26] MEDS: Cholecalciferol (D-3) 1,000 UNIT TABLET PO SCH (07:36)
[2016-06-26] MEDS: Lisinopril 20 MG TABLET PO SCH (07:36)
[2016-06-26] MEDS: Famotidine 20 MG TABLET PO SCH (07:37)
[2016-06-26] MEDS: Ondansetron 4 MG/2 ML VIAL IVP PRN (08:19)
[2016-06-26] MEDS: clonazePAM 0.5 MG TABLET PO SCH ×2 (08:53→20:22)
[2016-06-26 09:02] LABS: Hematocrit 32.9 % (35.3-44.9); Hemoglobin 10.6 g/dL (11.5-15.4); Mean Corpuscular HGB Conc 32.2 g/dL (31.6-35.5); Mean Corpuscular Hemoglobin 29.4 pg (28.0-33.3); Mean Corpuscular Volume 91.4 fL (83.0-100.0); Mean Platelet Volume 10.6 fL (9.4-12.4); Platelet Count 164 K/mcL (140-400); Red Cell Distribution Width 14.4 % (11.5-14.5)
--- NOTE | 2016-06-26 10:10 | Internal Med Progress Note ---
<Dangelo Sahu - Last Filed: 06/26/16 10:06> Date of Encounter: 06/26/16 Time of Encounter: 10:06 - Assessment and plan (1) Closed left hip fracture Current Visit: Yes Status: Acute Assessment and plan: s/p surgery, patient continues to do well without complication. She is participating with physical therapy and is awaiting placement for ECF. Qualifiers: Encounter type: initial encounter Qualified Code(s): S72.002A - Fracture of unspecified part of neck of left femur, initial encounter for closed fracture (2) Coronary artery disease Current Visit: Yes Status: Acute Assessment and plan: history of hypertension, coronary artery disease status post CABG. currently clinically stable. Home medications include simvastatin 40 mg by mouth at bedtime, lisinopril 20 mg by mouth daily, isosorbide dinitrate 10-20 mg by mouth 3 times a day, Pulmicort medication is not demonstrating aspirin or a beta robe. Qualifiers: Coronary Disease-Associated Artery/Lesion type: bypass graft [place] vs. transplanted heart: [place] heart Associated angina: without angina Qualified Code(s): I25.810 - Atherosclerosis of coronary artery bypass graft(s) without angina pectoris (3) Hypertension Current Visit: Yes Status: Chronic Assessment and plan: well controlled, continue current regimen -Continue lisinopril 20 by mouth daily Qualifiers: Hypertension type: essential hypertension Qualified Code(s): I10 - Essential (primary) hypertension (4) Anxiety Current Visit: Yes Status: Acute Assessment and plan: Clinically stable. Patient's home dose of Klonopin 0.5 mg by mouth twice a day was continued inpatient. (5) Anemia Current Visit: Yes Status: Acute Assessment and plan: Patient admitted with a hemoglobin of 8.7 in the setting of left proximal hip fracture. I do not have a baseline hemoglobin prior to this event her MCV is appropriate. Suspect acute blood loss anemia as she has received 2 units PRBCs and current hemoglobin 10.6, Improved from 9.9 yesterday. Qualifiers: Anemia type: unspecified type Qualified Code(s): D64.9 - Anemia, unspecified (6) Constipation Current Visit: Yes Status: Acute Qualifiers: Constipation type: unspecified constipation type Qualified Code(s): K59.00 - Constipation, unspecified - Constitutional Vitals: Temp Pulse Resp BP Pulse Ox 98 F 86 18 119/67 94 L 06/26/16 06:48 06/26/16 06:48 06/26/16 06:48 06/26/16 06:48 06/26/16 06:48 General appearance: Present: A&O X 3, pleasant, no acute distress Internal Medicine: Result - Labs CBC & Chem 7: 06/26/16 08:44 06/25/16 05:39 Labs: Short CBC 06/26/16 Range/Units 08:44 WBC 3.6 L (4.3-11.1) K/mcL Hgb 10.6 L (11.5-15.4) g/dL Hct 32.9 L (35.3-44.9) % Plt Count 164 (140-400) K/mcL - VTE Documentation of Mechanical Device: Intermittent pneumatic compression device Consult Discharge Plan - Plan Additional Instructions: Follow-up with primary care physician in the next 3-5 days. Take medications as prescribed. Partake in physical therapy and occupational therapy. Referrals: NO,PCP [Primary Care Provider] - Prescriptions: Oxycodone HCl/Acetaminophen [Percocet 5-325 mg Tablet] 5 - 325 mg PO Q4HR PRN # 25 tablet PRN Reason: Pain Enoxaparin [Lovenox] 30 mg SQ DAILY #14 syr <Rafael Ramirez - Last Filed: 06/26/16 10:56> - Constitutional Vitals: Temp Pulse Resp BP Pulse Ox 98 F 86 18 119/67 94 L 06/26/16 06:48 06/26/16 06:48 06/26/16 06:48 06/26/16 06:48 06/26/16 06:48 Internal Medicine: Result - Labs CBC & Chem 7: 06/26/16 08:44 06/25/16 05:39 Labs: Short CBC 06/26/16 Range/Units 08:44 WBC 3.6 L (4.3-11.1) K/mcL Hgb 10.6 L (11.5-15.4) g/dL Hct 32.9 L (35.3-44.9) % Plt Count 164 (140-400) K/mcL - Attending Attestation complaining of constipation will give lactulose today. Discharge today if pre-certification approved I examined this patient and my medical decision-making was reviewed with the HOMEWORKER/PA/Advanced Practice Nurse/Resident Physician. I agree with the documented findings, disposition and treatment plan as described except to the extent set forth below.
[2016-06-26] MEDS ORDERED: Lactulose Oral Soln 20 GM/30 ML UDC PO ONE (10:55)
[2016-06-27] MEDS: *HR* OxyCODONE Immed Rel 5 MG TABLET PO PRN (02:53)
[2016-06-27] MEDS: *HR* Heparin 5,000 UNIT/ML VIAL SQ SCH ×2 (05:57→17:08)
[2016-06-27] MEDS: Ondansetron 4 MG/2 ML VIAL IVP PRN (07:56)
[2016-06-27] MEDS: *HR* OxyCODONE/APAP 10/325 TABLET PO PRN ×3 (08:08→19:19)
[2016-06-27] MEDS: Famotidine 20 MG TABLET PO SCH (08:08)
[2016-06-27] MEDS: Lisinopril 20 MG TABLET PO SCH (08:08)
[2016-06-27] MEDS: clonazePAM 0.5 MG TABLET PO SCH ×2 (08:08→21:27)
[2016-06-27] MEDS: Cholecalciferol (D-3) 1,000 UNIT TABLET PO SCH (08:08)
[2016-06-27] MEDS: Ondansetron ODT 4 MG TAB.RAPDIS SL PRN ×2 (15:01→19:19)
--- NOTE | 2016-06-27 15:41 | Internal Med Progress Note ---
Date of Encounter: 06/26/16 Time of Encounter: 15:39 - Assessment and plan (1) Closed left hip fracture Current Visit: Yes Status: Acute Assessment and plan: s/p surgery, patient continues to do well without complication. She is participating with physical therapy and is awaiting placement for ECF. Qualifiers: Encounter type: initial encounter Qualified Code(s): S72.002A - Fracture of unspecified part of neck of left femur, initial encounter for closed fracture (2) Coronary artery disease Current Visit: Yes Status: Acute Assessment and plan: history of hypertension, coronary artery disease status post CABG. currently clinically stable. Home medications include simvastatin 40 mg by mouth at bedtime, lisinopril 20 mg by mouth daily, isosorbide dinitrate 10-20 mg by mouth 3 times a day, . Qualifiers: Coronary Disease-Associated Artery/Lesion type: bypass graft [place] vs. transplanted heart: [place] heart Associated angina: without angina Qualified Code(s): I25.810 - Atherosclerosis of coronary artery bypass graft(s) without angina pectoris (3) Hypertension Current Visit: Yes Status: Chronic Assessment and plan: well controlled, continue current regimen -Continue lisinopril 20 by mouth daily Qualifiers: Hypertension type: essential hypertension Qualified Code(s): I10 - Essential (primary) hypertension (4) Anxiety Current Visit: Yes Status: Acute Assessment and plan: Clinically stable. Patient's home dose of Klonopin 0.5 mg by mouth twice a day was continued inpatient. (5) Anemia Current Visit: Yes Status: Acute Assessment and plan: Acute blood loss anemia likely secondary to surgical procedure blood loss. Patient admitted with a hemoglobin of 8.7 in the setting of left proximal hip fracture. Has received 2 units PRBCs and current hemoglobin is stable Qualifiers: Anemia type: unspecified type Qualified Code(s): D64.9 - Anemia, unspecified (6) Constipation Current Visit: Yes Status: Acute Assessment and plan: contibution of pain med add lactulose Can be discharged today if placement is arranged Qualifiers: Constipation type: unspecified constipation type Qualified Code(s): K59.00 - Constipation, unspecified - Subjective Interval history: She is complaining of constipation. Complains of some mild left hip pain, denies any shortness of breath or chest pain. No fevers, no dysuria. - Constitutional Vitals: Temp Pulse Resp BP Pulse Ox 97.5 F L 73 17 101/62 92 L 06/27/16 10:37 06/27/16 12:07 06/27/16 10:37 06/27/16 12:07 06/27/16 10:37 General appearance: Present: A&O X 3, pleasant, no acute distress - Head Head exam: Present: atraumatic, normocephalic - Eye Eye exam: Present: PERRL, conjuntiva pink, sclera anicteric Pupils: Present: PERRL - Neck Neck exam general surgery: Present: supple, trachea midline. Absent: lymphadenopathy - Respiratory Respiratory exam: Present: decreased breath sounds, CTAB. Absent: accessory muscle use, rales, rhonchi, wheezes - Cardiovascular Cardiovascular exam: Present: RRR, +S1, +S2. Absent: diastolic murmur, gallop, rubs, systolic murmur - GI/Abdominal GI/Abdominal exam: Present: distended, normal bowel sounds, soft, no peritoneal signs. Absent: tenderness - Extremities Exam Extremities exam: Present: warm, radial pulses palpable and symetrical. Absent : calf tenderness, cyanotic, pedal edema - Neurological Exam Neurological exam: Present: CN II-XII intact, oriented X3, no focal deficits. Absent: pronater drift, facial droop, speech deficit - Skin Skin exam: Present: dry. Absent: intact (Left hip surgical wounds without signs of hematoma or infection) Internal Medicine: Result - Labs CBC & Chem 7: 06/26/16 08:44 06/25/16 05:39 - VTE Documentation of Mechanical Device: Venous foot pump, device Consult Discharge Plan - Plan Additional Instructions: Follow-up with primary care physician in the next 3-5 days. Take medications as prescribed. Partake in physical therapy and occupational therapy. Referrals: NO,PCP [Primary Care Provider] - Prescriptions: Oxycodone HCl/Acetaminophen [Percocet 5-325 mg Tablet] 5 - 325 mg PO Q4HR PRN # 25 tablet PRN Reason: Pain Enoxaparin [Lovenox] 30 mg SQ DAILY #14 syr
[2016-06-27] MEDS: Metoprolol XL (24 HR) Succ 25 MG TAB.ER.24H PO SCH (17:08)
[2016-06-27] MEDS: Lactulose Oral Soln 20 GM/30 ML UDC PO SCH (17:08)
[2016-06-28] MEDS: Ondansetron ODT 4 MG TAB.RAPDIS SL PRN ×3 (00:21→09:38)
[2016-06-28] MEDS: *HR* OxyCODONE/APAP 10/325 TABLET PO PRN ×3 (00:21→09:38)
[2016-06-28] MEDS: *HR* Heparin 5,000 UNIT/ML VIAL SQ SCH (05:35)
[2016-06-28] MEDS: Lactulose Oral Soln 20 GM/30 ML UDC PO SCH (09:00)
[2016-06-28] MEDS: Lisinopril 20 MG TABLET PO SCH (09:00)
[2016-06-28] MEDS: Famotidine 20 MG TABLET PO SCH (09:01)
[2016-06-28] MEDS: Metoprolol XL (24 HR) Succ 25 MG TAB.ER.24H PO SCH (09:01)
[2016-06-28] MEDS: Cholecalciferol (D-3) 1,000 UNIT TABLET PO SCH (09:01)
[2016-06-28] MEDS: clonazePAM 0.5 MG TABLET PO SCH (09:01)
[2016-06-28 10:46] VITALS: BP 124/74
--- NOTE | 2016-06-28 12:32 | Internal Med Progress Note ---
Date of Encounter: 06/26/16 Time of Encounter: 12:30 - Assessment and plan (1) Closed left hip fracture Current Visit: Yes Status: Acute Assessment and plan: s/p surgery, patient continues to do well without complication. She is participating with physical therapy and is awaiting placement for ECF. Discharge today Qualifiers: Encounter type: initial encounter Qualified Code(s): S72.002A - Fracture of unspecified part of neck of left femur, initial encounter for closed fracture (2) Coronary artery disease Current Visit: Yes Status: Acute Assessment and plan: history of hypertension, coronary artery disease status post CABG. currently clinically stable. Home medications include simvastatin 40 mg by mouth at bedtime, lisinopril 20 mg by mouth daily, isosorbide dinitrate 10-20 mg by mouth 3 times a day, . Qualifiers: Coronary Disease-Associated Artery/Lesion type: bypass graft [place] vs. transplanted heart: [place] heart Associated angina: without angina Qualified Code(s): I25.810 - Atherosclerosis of coronary artery bypass graft(s) without angina pectoris (3) Hypertension Current Visit: Yes Status: Chronic Assessment and plan: well controlled, continue current regimen -Continue lisinopril 20 by mouth daily Qualifiers: Hypertension type: essential hypertension Qualified Code(s): I10 - Essential (primary) hypertension (4) Anxiety Current Visit: Yes Status: Acute Assessment and plan: Clinically stable. Patient's home dose of Klonopin 0.5 mg by mouth twice a day was continued inpatient. (5) Anemia Current Visit: Yes Status: Acute Assessment and plan: Acute blood loss anemia likely secondary to surgical procedure blood loss. Patient admitted with a hemoglobin of 8.7 in the setting of left proximal hip fracture. Has received 2 units PRBCs and current hemoglobin is stable Qualifiers: Anemia type: unspecified type Qualified Code(s): D64.9 - Anemia, unspecified (6) Constipation Current Visit: Yes Status: Acute Assessment and plan: contibution of pain med added lactulose Can be discharged today if placement is arranged Qualifiers: Constipation type: unspecified constipation type Qualified Code(s): K59.00 - Constipation, unspecified - Subjective Interval history: Complains of some mild left hip pain, denies any shortness of breath or chest pain. No fevers, no dysuria. - Constitutional Vitals: Temp Pulse Resp BP Pulse Ox 97.7 F 66 18 124/74 94 L 06/28/16 10:43 06/28/16 10:43 06/28/16 10:43 06/28/16 10:43 06/28/16 10:43 General appearance: Present: A&O X 3, pleasant, no acute distress - Head Head exam: Present: atraumatic, normocephalic - Eye Eye exam: Present: PERRL, conjuntiva pink, sclera anicteric Pupils: Present: PERRL - Neck Neck exam general surgery: Present: supple, trachea midline. Absent: lymphadenopathy - Respiratory Respiratory exam: Present: CTAB. Absent: accessory muscle use, rales, rhonchi, wheezes - Cardiovascular Cardiovascular exam: Present: RRR, +S1, +S2. Absent: diastolic murmur, gallop, rubs, systolic murmur - GI/Abdominal GI/Abdominal exam: Present: normal bowel sounds, soft, no peritoneal signs. Absent: distended, tenderness - Extremities Exam Extremities exam: Present: pedal edema, warm, radial pulses palpable and symetrical. Absent: calf tenderness, cyanotic Additional comments: Left hip surgical wounds without signs of hematoma or infection - Neurological Exam Neurological exam: Present: CN II-XII intact, oriented X3, no focal deficits. Absent: pronater drift, facial droop, speech deficit - Skin Skin exam: Present: dry, intact Internal Medicine: Result - Labs CBC & Chem 7: 06/26/16 08:44 06/25/16 05:39 - VTE Documentation of Mechanical Device: Venous foot pump, device Consult Discharge Plan - Plan Additional Instructions: Follow-up with primary care physician in the next 3-5 days. Take medications as prescribed. Partake in physical therapy and occupational therapy. Referrals: NO,PCP [Primary Care Provider] - Prescriptions: Oxycodone HCl/Acetaminophen [Percocet 5-325 mg Tablet] 5 - 325 mg PO Q4HR PRN # 25 tablet PRN Reason: Pain ClonazePAM [Klonopin] 0.5 mg PO BID #30 tablet Enoxaparin [Lovenox] 30 mg SQ DAILY #14 syr Lactulose 10 gm PO DAILY 30 Days Metoprolol XL (24 HR) Succ [Toprol XL] 12.5 mg PO DAILY #30 tab.er.24h Oxycodone HCl/Acetaminophen [Percocet 5-325 mg Tablet] 1 each PO Q4H PRN #30 tablet PRN Reason: pain Temazepam [Restoril] 15 mg PO HS PRN #15 capsule PRN Reason: Insomnia
[2016-06-28] MEDS: *HR* OxyCODONE Immed Rel 5 MG TABLET PO PRN (12:42)
== END 2016-06-28 12:51 | DRG 481 ==
LOC: 3NENU → SUATTDRO 06-21 04:27
PROVIDERS: ADMIT Internal Medicine; ATTEND Internal Medicine